=== PATIENT | female | born 1960 | race Two or more races ===

== ENCOUNTER 2022-08-20 09:41 | Day surgery (SDC) | payer MEDICAID ==
[~2022-08-20] VITALS: Ht 157.5 cm; Wt 79.4 kg
[~2022-08-20 09:41] MED LIST: ATOR20TA PO; HYDR-4072 PO; LISI2.5T47 PO; METF-370 PO; PREG50CA PO
[2022-08-20] MEDS ORDERED: MIDAZOLAM HCL 2MG/2ML 2ml VIAL (1mg/ml) ONE (13:29)
[2022-08-20] MEDS ORDERED: SODIUM CHL 0.9% 0 ML ONE (13:29)
[2022-08-20] MEDS ORDERED: fentaNYL CITRATE 100 MCG/2 ML VL ONE (13:29)
[2022-08-20] MEDS ORDERED: ANGIOMAX 250 MG VIAL IV ONE (13:29)
[2022-08-20] MEDS ORDERED: IODIXANOL 320MG/ML 100ML BTL IV ONE (13:29)
[2022-08-20] MEDS ORDERED: VERAPAMIL 2.5MG/ML INJ 2ML VIAL IV ONE (13:30)
[2022-08-20] MEDS ORDERED: LIDOCAINE 2%HCL (LOCAL ANESTH.) INJ 20ML MDV ONE (13:30)
[2022-08-20] MEDS ORDERED: diphenhdrAMINE HCL 50 MG/1 ML VL ONE (13:55)
[2022-08-20] MEDS ORDERED: HEPARIN SODIUM (PORCINE) 5000 UNITS/ML 1ML VIAL ONE (14:03)
== END 2022-08-20 16:20 | disposition home or self-care (01) ==
LOC: CATH 09:41
PROVIDERS: ATTEND Internal Medicine
DX: R07.9 Chest pain, unspecified (principal); I25.119 Atherosclerotic heart disease of native coronary artery with unspecified angina pectoris; E78.00 Pure hypercholesterolemia, unspecified; I83.90 Asymptomatic varicose veins of unspecified lower extremity; I10 Essential (primary) hypertension; Z82.49 Family history of ischemic heart disease and other diseases of the circulatory system; Z20.822 Contact with and (suspected) exposure to COVID-19
CPT/HCPCS: 93458; C1769; C1887; C1894; J1200; J1644; J2250; J3010; Q9967; U0003; 99152

== ENCOUNTER → 2024-05-03 | Outpatient (CLI) | payer OTHER, MEDICAID ==
[~2024-05-03] VITALS: Ht 157.5 cm; Wt 77.1 kg
[~2024-05-03] MED LIST changes: +B-COTAB19 OR; +CHOL100055 PO; +LIDO5DIS21 TOP; +SEMA0.5I SC
== END | disposition home or self-care (01) ==
LOC: LAB 10:10 → EDSTATUS 05-07 08:30
PROVIDERS: ATTEND Surgery Vascular Surgery
DX: I83.899 Varicose veins of unspecified lower extremity with other complications (principal)
CPT/HCPCS: 86850; 86900; 86901